=== PATIENT | male | born 1985 | race Caucasian/White ===

== ENCOUNTER 2017-12-17 15:40 | Emergency (ER) | payer OTHER ==
[2017-12-17 16:18] VITALS: BP 127/71; PULSE 97; TEMP 98.2; BMI 29.5
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
== END 2017-12-17 17:03 | disposition home or self-care (01) ==
LOC: FER 15:40
DX: Z04.1 Encounter for examination and observation following transport accident (principal); V57.6XXA Passenger in pick-up truck or van injured in collision with fixed or stationary object in traffic accident, initial encounter; Y93.89 Activity, other specified; Y92.412 Parkway as the place of occurrence of the external cause; E03.9 Hypothyroidism, unspecified; F63.81 Intermittent explosive disorder
CPT/HCPCS: 99281-25

== ENCOUNTER 2018-12-23 10:22 | Emergency (ER) | payer OTHER ==
--- NOTE | 2018-12-23 10:31 | PDOC ---
History of Present Illness - General Chief Complaint: Injury Stated Complaint: FALL, LACERATIONS TO FACE Time Seen by Provider: 12/23/18 10:30 History Source: Patient Exam Limitations: Clinical Condition - History of Present Illness Initial Comments: 33 yo M from [facility] w a hx of intermittent explosive disorder, hypothyroidism, severe intellectual disability, and ADHD presents to the ER accompanied by a guardian from the home for facial lacerations after falling 1 hour prior to arrival. The patient has bad balance to begin with and he was playing pool at the home when he tripped, fell forward, and his face hit the pool table. The patient wears thick eye glasses for his poor vision which took most of the impact when the patient fell forward. The patient did not experience LOC and does not take any blood thinners. After the fall the staff home therapy rn washed his wounds with soap and water before coming into the ER. The patient denies having any pain at the present time. He denies having a headache , neck pain, facial pain, bleeding diathesis, nausea, or vomiting. Tetanus: last shot ~ 10 years ago PCP: Araseli Whiting PSH: None reported Allergies: NKA, NKDA Social Hx: Resident of [facility]. Denies smoking, drinking, or other substance usage. Pharmacy - prescription center [facility] [place] - [phone] Past History - Past Medical History Allergies/Adverse Reactions: Allergies Allergy/AdvReac Type Severity Reaction Status Date / Time No Known Allergies Allergy Verified 12/17/17 16:07 Home Medications: Ambulatory Orders Benzoyl Peroxide [Bp Wash Acne Treatment] 1 each TP DAILY 12/17/17 Benztropine Mesylate [Cogentin -] 1 mg PO TID 12/17/17 Chlorpromazine [Thorazine -] 200 mg PO TID 12/17/17 Cholecalciferol (Vitamin D3) [Vitamin D] 2,000 unit PO DAILY 12/17/17 Divalproex [Depakote -] 500 mg PO BID 12/17/17 COPD: No Psychiatric Problems: Yes (INTERMIT EXPLOSIVE DISORDER) Thyroid Disease: Yes (HYPOTHYROID) - Suicide/Smoking/Psychosocial Hx Smoking History: Never smoked Have you smoked in the past 12 months: No Hx Alcohol Use: No Drug/Substance Use Hx: No Substance Use Type: None Review of Systems - Review of Systems Able to Perform ROS?: Yes Comments:: CONSTITUTIONAL: No fever, no chills, no fatigue EYES: No visual changes ENT: No ear pain, no sore throat CARDIOVASCULAR: No chest pain, no palpitations RESPIRATORY: No cough, no SOB GI: No abdominal pain, no nausea, no vomiting, no constipation, no diarrhea GENITOURINARY: No dysuria, no frequency, no hematuria MUSKULOSKELETAL: No backpain, no joint pain, no myalgias SKIN: No rash NEURO: No headache *Physical Exam - Physical Exam Comments: GENERAL: Patient is awake, alert and in no acute distress. Speech is clear and appropriate. HEAD: Atraumatic and nontender. HEENT: There are 3 small superficial lacerations around the patient's left eye. There is one 3 cm laceration between the eyebrow and the eyelash. There are two other small 2 cm lacerations immediately below the left eye. None are actively bleeding. Pupils are equal round and reactive to light, extraocular movements are intact. The tympanic membranes are clear, no hemotympanum. No facial bone tenderness or step-off. No nasal septal hematoma. The oropharynx is clear. NECK: The trachea is midline, there is no stridor. There is no midline cervical spine tenderness, full range of motion of neck. CHEST: Non-tender, no ecchymosis or abrasions. Equal chest wall expansion bilaterally. No flail segments. Lungs are clear to auscultation bilaterally. CARDIOVASCULAR: S1-S2, regular rate and rhythm. No murmurs or rubs. ABDOMEN: Soft, nontender, nondistended. Bowel sounds are normoactive. There is no abdominal or flank ecchymosis. BACK/PELVIS: There is no midline thoracic or lumbosacral spine tenderness or step-off. Pelvis is stable and nontender. EXTREMITIES: There is no extremity deformity or joint swelling. No focal bony tenderness throughout. 2+ distal pulses throughout. NEURO: Alert and oriented x3. Cranial nerves II through XII are intact. 5 out of 5 motor strength x4 extremities. No gross sensory deficits. SKIN: There are 3 small superficial lacerations around the patient's left eye. There is one 3 cm laceration between the eyebrow and the eyelash. There are two other small 2 cm lacerations immediately below the left eye. No hematomas. PSYCH: Affect is appropriate Medical Decision Making - Medical Decision Making 33 [facility] w a hx of intermittent explosive disorder, hypothyroidism, severe intellectual disability, and ADHD presents to the ER accompanied by a guardian from the home for facial lacerations after falling 1 hour prior to arrival. VS: WNL MDM: will wash off, irrigate and clean the wound, update tetanus, and apply dermabond for wound care. - Tylenol for pain control. Tetanus updated Dermabond applied to facial lacerations. Will DC patient with PCP follow up and return precautions. - Patient advised not to apply lubricating jelly, or Abx cream on top of dermadond. *DC/Admit/Observation/Transfer Diagnosis at time of Disposition: Facial laceration - Discharge Dispostion Disposition: HOME Condition at time of disposition: Stable Decision to Admit order: No - Referrals Referrals: [facility] [place] Internal Med at [place] [Provider Group] - Patient Instructions Printed Discharge Instructions: DI for Laceration Repair With Dermabond Additional Instructions: You came into the ER after you fell and hit your head. We applied some dermabond to your lacerations. Do not put lubricating jelly, Abx cream, or wash the face for the next 24 hours. Take tylenol for pain control. Please make sure to follow up with your primary care doctor in the next week to make sure you are feeling well and being taken care of. Come back to the ER immediately if your pain worsens, you get a headache, feel nauseous or have any other new or worsening concerns. Thank you for coming to the [facility]. We hope you feel better soon! Print Language: MAORI - Post Discharge Activity
[2018-12-23 10:35] VITALS: BP 128/86; PULSE 96; TEMP 97.8; BMI 30.1
[2018-12-23] MEDS ORDERED: DIPHTH,PERTUSS(ACELL),TET 0.5 ML DISP.SYRIN IM ONE ×2 (10:50→11:12)
[2018-12-23] MEDS ORDERED: ACETAMINOPHEN 325 MG TABLET (FP) PO ONE (10:51)
--- NOTE | 2018-12-23 10:51 | PDOC ---
Attending Attestation - Resident Resident Name: Adin Deutsch - ED Attending Attestation I have performed the following: I have examined & evaluated the patient, The case was reviewed & discussed with the resident, I agree w/resident's findings & plan - HPI HPI: 12/23/18 10:51 32 year old male from [facility], with a significant past medical history of intermittent explosive disorder and hypothyroidism, severe intellectual disability, and ADHD, who presents to the emergency department for evaluation of left facial lacerations s/p mechanical trip and fall while playing pool at the house when he lost his balance while playing pool. he was wearing goggles at the time, lost his balance and fell against the wall No LOC or AMS, seizure or vomiting. He was wearing glasses at the time, which bore most of the impact. Ambulatory, gait stable. No complaints. baseline with blindness, hence the goggles/glasses. Tetanus unclear per home, will need update 12/23/18 11:06 - Physicial Exam PE: 12/23/18 11:03 Agree with the resident's HPI and PE as documented in the electronic medical record. NAD, mentally disabled, EOMI, PERRL, left corneal opacity, +blindness (chronic) , nl conjunctiva, dentition in tact, no TMJ laxity/tenderness; +left facial superficial lacerations, horizontal x3, - 2cm linear, horizontal superficial laceration on upper eyelid x1 - 2-2.5cm linear, horizontal superficial laceration on left upper check below lower lid x2 nonbleeding CN II-XII grossly intact. neck supple. no midline tenderness, lungs clear, RRR, abdomen soft nontender. Back nontender. SAMSON x4, no focal neuro deficits. No peripheral edema. normal color for ethnicity, WWP. - Medical Decision Making 12/23/18 11:05 hpi as documented VS reviewed wnl. doubt intra cranial injury or bleed, defer CT imaging, as pt w/o symptoms, no LOC/sz or AMS or vomiting. tdap updated lacerations repaired with dermabond, see resident procedure note. gait stable, no acute events. no analgesia required. no neuro deficits, remains well. discharge stable condition, return precautions, wound care instructions, expectant management and fall prevention safety 12/23/18 11:08
[2018-12-23] MEDS ORDERED: ACETAMINOPHEN 325 MG TABLET (FP) ONE (11:12)
--- NOTE | 2018-12-23 17:02 | PDOC ---
*Physical Exam - Vital Signs Last Vital Signs Temp Pulse Resp BP Pulse Ox 97.8 F 96 H 18 128/86 100 12/23/18 10:22 12/23/18 10:22 12/23/18 10:22 12/23/18 10:22 12/23/18 10:22 <Adin Deutsch - Last Filed: 12/23/18 17:02> - Vital Signs Last Vital Signs Temp Pulse Resp BP Pulse Ox 97.8 F 96 H 18 128/86 100 12/23/18 10:22 12/23/18 10:22 12/23/18 10:22 12/23/18 10:22 12/23/18 10:22 <Tiffanie Sierra - Last Filed: 12/23/18 19:04> ED Treatment Course - ADDITIONAL ORDERS Additional order review: Laboratory Results 12/23/18 11:51 ALT 42 - Medications Given in the ED: ED Medications Discontinued Medications Generic Name Dose Route Start Last Admin Trade Name Freq PRN Reason Stop Dose Admin Acetaminophen 650 mg 12/23/18 10:51 12/23/18 11:23 Tylenol - PO 12/23/18 10:52 650 mg ONCE ONE Administration Diphtheria/Tetanus/Acell Pertussis 0.5 ml 12/23/18 10:50 12/23/18 11:15 Boostrix - IM 12/23/18 10:51 0.5 ml .ONCE ONE Administration <Adin Deutsch - Last Filed: 12/23/18 17:02> - ADDITIONAL ORDERS Additional order review: Laboratory Results 12/23/18 11:51 ALT 42 - Medications Given in the ED: ED Medications Discontinued Medications Generic Name Dose Route Start Last Admin Trade Name Freq PRN Reason Stop Dose Admin Acetaminophen 650 mg 12/23/18 10:51 12/23/18 11:23 Tylenol - PO 12/23/18 10:52 650 mg ONCE ONE Administration Diphtheria/Tetanus/Acell Pertussis 0.5 ml 12/23/18 10:50 12/23/18 11:15 Boostrix - IM 12/23/18 10:51 0.5 ml .ONCE ONE Administration <Tiffanie Sierra - Last Filed: 12/23/18 19:04> *DC/Admit/Observation/Transfer <Adin Deutsch - Last Filed: 12/23/18 17:02> <SierraTiffanie Weiner - Last Filed: 12/23/18 19:04> Diagnosis at time of Disposition: Facial laceration - Discharge Dispostion Disposition: HOME Condition at time of disposition: Stable - Referrals Referrals: [facility] [place] [facility] at [place] [Provider Group] - Patient Instructions Printed Discharge Instructions: DI for Laceration Repair With Dermabond Additional Instructions: You came into the ER after you fell and hit your head. We applied some dermabond to your lacerations. Do not put lubricating jelly, Abx cream, or wash the face for the next 24 hours. Take tylenol for pain control. Please make sure to follow up with your primary care doctor in the next week to make sure you are feeling well and being taken care of. Come back to the ER immediately if your pain worsens, you get a headache, feel nauseous or have any other new or worsening concerns. Thank you for coming to the [facility]. We hope you feel better soon! Print Language: PAKISTANI - Post Discharge Activity Forms/Work/School Notes: Back to School Procedures - Laceration/Wound Repair Left Upper Lateral Eye Wound Length: 2.6 to 5.0 cm Wound Explored: clean Wound's Depth, Shape: superficial Irrigated w/ Saline: Yes Betadine Prep: Yes Wound Debrided: minimal Wound Repaired With: Dermabond Sterile Dressing Applied: No Splint Applied: No <Adin Deutsch - Last Filed: 12/23/18 17:02>
[2018-12-25 00:09] LABS: HBSAG SCREEN Negative (Negative); HEP B CORE AB, TOT Negative (Negative)
== END 2018-12-23 12:24 | disposition home or self-care (01) ==
LOC: FER 10:22
PROC: 3E0234Z Introduction of Serum, Toxoid and Vaccine into Muscle, Percutaneous Approach (ICD-10-PCS; principal; 2018-12-23)
DX: S01.81XA Laceration without foreign body of other part of head, initial encounter (principal); W18.39XA Other fall on same level, initial encounter; Y93.89 Activity, other specified; Y92.34 Swimming pool (public) as the place of occurrence of the external cause; E03.9 Hypothyroidism, unspecified; F63.81 Intermittent explosive disorder; F90.9 Attention-deficit hyperactivity disorder, unspecified type; F79 Unspecified intellectual disabilities
CPT/HCPCS: 36415; 84460; 86704; 86706; 86708; 86803; 87340; 87389; 90471; 90715; 99282-25

== ENCOUNTER 2022-12-27 11:07 | Emergency (ER) | payer OTHER ==
[2022-12-27 11:20] VITALS: BP 143/76; PULSE 89; RESP 18; TEMP 98.2; BMI 25.4
== END 2022-12-27 11:57 | disposition home or self-care (01) ==
LOC: FER 11:07
DX: S00.81XA Abrasion of other part of head, initial encounter (principal); W22.8XXA Striking against or struck by other objects, initial encounter
CPT/HCPCS: 99282-25